=== PATIENT | male | born 1995 | race Caucasian/White ===

== ENCOUNTER 2019-03-11 14:52 | Emergency (ER) | payer BC, OTHER, SELFPAY ==
[2019-03-11 14:54] VITALS: BP 157/91; PULSE 89; RESP 22; TEMP 36.4; O2SAT 100; BMI 24.7
--- NOTE | 2019-03-11 15:15 | CT_ITS ---
STUDY: CT BRAIN WITHOUT CONTRAST REASON FOR EXAM: Male, 23 years old. Headache RADIATION DOSAGE (If Supplied By Facility): CTDIvol = ( 44.99 ) mGy, DLP = ( 779.24 ) mGycm TECHNIQUE: Transaxial CT imaging of the brain was performed without administration of intravenous contrast material. Individualized dose optimization techniques were used for this CT. COMPARISON: May 16, 2014 FINDINGS: Normal soft tissue structures. Normal calvarium. Normal size ventricles and extra-axial spaces for the patient's age. Normal white matter tracts of the cerebral hemispheres. Normal basal ganglia and thalami. Normal brainstem. Normal cerebellum. There is no intracranial hemorrhage. There are no findings of an acute ischemic infarction. Normal visualized paranasal sinuses. CT/Brain/Head without Contrast IMPRESSION: Normal unenhanced CT scan of the brain. Electronically Signed: Mynor Salter MD at 16:46 EST , Service support ,
--- NOTE | 2019-03-11 15:26 | ED.VISSUMM ---
- ER Visit Summary Date of Service: 03/11/19 Chief Complaint: Headache History of Present Illness: The patient is a 23 M with a headache that started suddenly around 1 PM today. He was at work, standing when he had the sudden onset of right temporal pain. The pain was severe. He denies any other associated symptoms with it like vomiting or neurologic symptoms. He said the pain lasted about 10 to 15 minutes and then subsided. He had 2 other similar episodes, 1 of them at 2 PM, and 1 of them at 3 PM. He never had these before. Nothing seemed to bring them on. He denies any trauma. Nothing seemed to make them better. He has a history of migraines, but this pain is different. He uses alcohol occasionally and chewing tobacco occasionally. He denies drug use. Denies any other medical issues or surgeries. Physical Examination: Afebrile and vital signs unremarkable. Patient is alert and oriented. No acute distress. HEENT exam unremarkable. Head and neck atraumatic. Neck is nontender with good range of motion. Heart regular rate. No respiratory distress. Skin appears normal. Alert and oriented. Cranial nerves grossly intact. Normal strength and sensation. Normal affect. Test Results: CT, labs pending. Emergency Department Course and Treatment: Patient was treated with fluids, Benadryl, and Compazine while awaiting imaging and laboratory results. Labs were normal. CT brain was normal. Patient's pain went from 7 to 4 out of 10 after Compazine and Benadryl. I did check CTAs which were unremarkable. Will treat with Toradol. I have low suspicion for aneurysm, bleed. I suspect this is an atypical migraine or other headache variant. Patient will be discharged to follow-up with primary care. Treatment Plan: As above Disposition: Discharge Impression: 1. Headache This note was generated with [employer] dictation software. It may contain incorrect words, spelling, and punctuation that were not noted in review of the chart prior to signing ED Disposition - Plan for ED Patient: Referrals: Figueroa Bryson MD [Primary Care Provider] -
[2019-03-11] MEDS: 0.9% Normal Saline 1,000 ML 999 ML IV (15:28)
[2019-03-11 15:29] LABS: Absolute Lymphocyte Count 1.51 X10^3/uL (0.83-4.51); Absolute Neutrophil Count 5.3 X10^3/uL (2.0-7.7); Basophil# 0.03 X10^3/uL; Basophil% 0.4 % (0-1); Eosinophil# 0.07 X10^3/uL; Eosinophils% 0.9 % (0-5); Hematocrit 46.1 % (40-54); Hemoglobin 16.3 g/dL (13.0-16.5); Lymphocyte # 1.51 X10^3/ul (4.0); Lymphocyte % 19.6 % (19-41); Mean Corp Hgb Conc 35.4 g/dL (32-36); Mean Platelet Vol. 10.2 fl (6.2-12.0); Monocyte# 0.78 X10^3/uL; Monocyte% 10.1 % (0-10); NRBC Flagged by Analyzer 0 % (0-5); Neutrophil # 5.27 X10^3/uL (2.7-7.7); Neutrophil % 68.6 % (47-70); Platelet Count 253 K/mm3 (150-450); RBC Distribution Width CV 11.6 % (11.6-14.6); RBC Distribution Width SD 33.7 fl (35.1-43.9); Red Blood Count 5.62 M/mm3 (4.6-6.2); White Blood Count 7.7 K/mm3 (4.4-11.0)
[2019-03-11] MEDS: DiphenhydrAMINE 50 MG/ML Syringe 25 MG IV (15:30)
[2019-03-11] MEDS: proCHLORPERazine 10 MG/2 ML Vial IV (15:32)
[2019-03-11 15:46] LABS: Prothrombin Time (Protime)PT. 13.2 SECONDS (11.7-14.9)
[2019-03-11 15:47] LABS: Anion Gap 9 (5-15); BUN 12 mg/dL (7-18); BUN/Creat Ratio 11.5 RATIO (10-20); Calcium,Total 9.4 mg/dL (8.5-10.1); Chloride 106 mmol/L (98-107); Creatinine, Serum 1.04 mg/dL (0.70-1.30); EST Glomerular Filtration Rate 95 mL/min (>60); Est Glom Filt Rate - Afr Amer 115 mL/min (>60); Estimated Creatinine Clearance 125.91 ml/min; Glucose 98 mg/dL (74-106); Partial Thromboplast Time 28.9 Seconds (24.1-36.2); Potassium 3.6 mmol/L (3.5-5.1); Sodium Level 141 mmol/L (136-145)
--- NOTE | 2019-03-11 17:08 | CT_ITS ---
STUDY: CTA HEAD AND NECK WITH CONTRAST REASON FOR EXAM: Male, 23 years old. Headache and right-sided pain RADIATION DOSAGE (If Supplied By Facility): CTDIvol = ( 21.48 ) mGy, DLP = ( 803.01 ) mGycm TECHNIQUE: CT angiography was performed with a multi-detector CT scanner. Data acquisition was obtained from the skull base through the vertex following intravenous administration of IV 100mL Isovue-370 100. MIP images were reconstructed from the axial data set. Post-processing of the angiographic images was performed, without multiplanar reformation and 3D reconstruction. Sensitivity therefore limited. Individualized dose optimization techniques were used for this CT. COMPARISON: CT brain from today FINDINGS: Normal bilateral petrous carotid arteries. Normal right cavernous carotid artery with a normal supraclinoid bifurcation. Normal left cavernous carotid artery with a normal supraclinoid bifurcation. Normal right A1 segments of the anterior cerebral artery. Normal left A1 segments of the anterior cerebral artery. Normal intact anterior communicating artery (ACOM). Normal bilateral A2 segments of the anterior cerebral arteries. Normal right M1 and M2 segments of the middle cerebral arteries, with a normal M1 bifurcation. Normal left M1 and M2 segments of the middle cerebral arteries, with a normal M1 bifurcation. Hypoplastic right posterior communicating artery (PCOM). Hypoplastic left posterior communicating artery (PCOM). Normal bilateral vertebral arteries. Normal basilar artery with a normal basilar bifurcation. The visualized bilateral superior cerebellar (SCA) arteries are normal. Normal bilateral P1, P2 and visualized P3 segments of the posterior cerebral arteries. There is no demonstrated aneurysm of the [place]. There is no demonstrated abnormality of the visualized brain. AORTIC ARCH: Normal visualized aortic arch. Normal origins of the brachiocephalic, left common carotid, and left subclavian arteries. RIGHT CAROTID ARTERIES: Normal right common carotid artery (CCA). Normal right common carotid bulb. Normal origin of the right internal carotid (ICA) artery without a hemodynamically significant stenosis. Normal visualized cervical portion of the right internal carotid artery. Normal origin of the right external carotid artery (ECA). LEFT CAROTID ARTERIES: Normal left common carotid artery (CCA). Normal left common carotid bulb. Normal origin of the left internal carotid (ICA) artery without a hemodynamically significant stenosis. Normal visualized cervical portion of the left internal carotid artery. Normal origin of the left external carotid artery (ECA). VERTEBRAL ARTERIES: Normal bilateral vertebral arteries. CT/CTA Head AND Neck W/ Contrast IMPRESSION: Normal CTA Head and neck with contrast. Electronically Signed: Mynor Salter MD at 18:14 EST , Service support ,
--- NOTE | 2019-03-11 18:43 | ED.DEP ---
ED Disposition - Plan for ED Patient: Instructions: HEADACHE, Unspecified Referrals: Figueroa Bryson MD [Primary Care Provider] -
[2019-03-11] MEDS: Ketorolac 30 MG/ML Syringe IV (18:49)
[2019-03-11 18:51] VITALS: RESP 18
== END 2019-03-11 19:07 | disposition home or self-care (01) ==
PROVIDERS: Emergency Provider Emergency Medicine; Family Provider Family Medicine; PCP Family Medicine
DX: R51 Headache (principal); F17.220 Nicotine dependence, chewing tobacco, uncomplicated
CPT/HCPCS: 70450; 70496; 70498; 80048; 85025; 85610; 85730; 96361; 96374; 96375; 99283; J7030; Q9967; A4216

== ENCOUNTER 2020-02-07 20:51 | Emergency (ER) | payer BC, SELFPAY ==
[2020-02-07 20:53] VITALS: BP 152/93; PULSE 79; RESP 15; TEMP 37.8; O2SAT 98; BMI 27.6
--- NOTE | 2020-02-07 22:51 | CT_ITS ---
STUDY: CT ABDOMEN AND PELVIS WITHOUT CONTRAST REASON FOR EXAM: Male, 24 years old. Rectal bleeding for 2 days. Bleeding increased today. Mid left abdominal pain. RADIATION DOSAGE (If Supplied By Facility): CTDIvol = ( 7.18 ) mGy, DLP = ( 391.11 ) mGycm TECHNIQUE: Transaxial images were obtained from the dome of the diaphragm to the symphysis pubis without oral contrast, and without intravenous contrast. Sagittal and coronal images were reconstructed. Individualized dose optimization techniques were used for this CT. COMPARISON: None. FINDINGS: The visualized lung bases are unremarkable. The visualized portions of the heart are within normal limits. Normal liver. Normal gallbladder and extrahepatic biliary system. Borderline splenomegaly. Normal pancreas. Normal bilateral adrenal glands. Normal right kidney. Normal left kidney. Normal bilateral ureters. Normal visualized stomach. Normal small intestine. Normal colon. The appendix is visualized and appears normal. Normal abdominal aorta. Normal inferior vena cava. Normal retroperitoneum. Normal urinary bladder. Normal size prostate. There are phleboliths in the pelvis without lymphadenopathy. No free air or free fluid is seen within the peritoneal cavity. Small umbilical hernia of omental fat. The abdominal wall is otherwise unremarkable. Normal osseous structures. CT/Abdomen/Pelvis without Cont IMPRESSION: 1. No acute intra-abdominal or pelvic process. 2. Borderline splenomegaly. Electronically Signed: Bert Dumont DO at 23:50 EDT Tel [phone], Service support ,
--- NOTE | 2020-02-07 22:52 | ED.DCSUM_ITS ---
History of Present Illness Chief Complaint: GI Bleed Narrative: Patient presents with abdominal pain that has been ongoing for the past 2 to 3 months he is also having intermittent rectal bleeding. He saw his PCP brooks and was referred to the emergency department. Denies any fever or chills he does not feel lightheaded when he stands up he has no urinary symptoms he has no testicular pain. He denies any chest pain or shortness of breath. The pain is aching and sharp and intermittent. Past Medical History - Allergies and Home Meds Allergies/Adverse Reactions: Allergies fluoxetine HCl [From Prozac] Allergy (Verified 02/07/20 20:52) Hives lisdexamfetamine dimesylate [From Vyvanse] Allergy (Verified 02/07/20 20:52) Other sertraline HCl [From Zoloft] Allergy (Verified 02/07/20 20:52) Hives Sulfa (Sulfonamide Antibiotics) Allergy (Verified 02/07/20 20:52) Rash Primary Care Physician: Figueroa Bryson MD [Primary Care Provider] - Past Medical History: None Smoking Status: Former smoker Review of Systems General: Denies: Chills Eyes: Denies: Visual changes - bilaterally Cardiovascular: Denies: Chest pain Respiratory: Denies: Dyspnea, Cough Gastrointestinal: Reports: Abdominal pain. Denies: Nausea, Vomiting Musculoskeletal: Denies: Back pain Skin: Denies: Abscess, Wounds Neurological: Denies: Headache, Weakness Endocrine: Denies: Polyuria, Polydipsia Hematologic: Denies: Easy bruising, Easy bleeding Physical Exam Vital Signs/Narrative: Vital Signs Temp Pulse Resp BP Pulse Ox 02/07/20 20:53 100.0 F H 79 15 152/93 H 98 General: Well nourished, Well developed Cardiovascular: Regular rate, Regular rhythm Respiratory: No distress, CTA bilaterally Abdomen: Soft, - - There is some mild diffuse abdominal pain without any guarding or rebound. Pain is throughout. Back: Nontender, Normal Inspection Extremities: Nontender Skin: Normal color, No rash Neurological: Normal Strength Diagnostic/Tx/Re-eval - Medical Decision Making Patient has a normal emergency department work-up, however I do believe he likely has inflammatory bowel disease he will need a colonoscopy. I will refer to GI. I will give him analgesia for home. If anything changes he is to return he understands this. ED Disposition - Plan for ED Patient: Disposition: Home or Assisted Living Diagnosis: Abdominal pain Prescriptions: Dicyclomine HCl [Bentyl] 20 mg PO TIDAC #20 cap Transmission Status: Pending to [facility] Hydrocodone Bitart/Apap 5-325 [[place] 5MG-325MG] 1 tab PO Q4H PRN PRN 2 Days #10 tab PRN Reason: Pain Transmission Status: Received by [facility]ARRETT [facility] Referrals: Sumeet Nolasco MD [NON-STAFF] - 3-5 Days
[2020-02-07] MEDS: Morphine 2 MG/ML Syringe IV (23:07)
[2020-02-07] MEDS: Ondansetron 4 MG/2 ML Vial IV (23:07)
[2020-02-07] MEDS: 0.9% Normal Saline 1,000 ML 1000 ML IV (23:07)
[2020-02-07 23:17] LABS: Absolute Lymphocyte Count 1.99 X10^3/uL (0.83-4.51); Absolute Neutrophil Count 3.6 X10^3/uL (2.0-7.7); Basophil# 0.04 X10^3/uL; Basophil% 0.6 % (0-1); Eosinophil# 0.09 X10^3/uL; Eosinophils% 1.4 % (0-5); Hematocrit 45.1 % (40-54); Hemoglobin 15.6 g/dL (13.0-16.5); Lymphocyte # 1.99 X10^3/ul (4.0); Lymphocyte % 31.1 % (19-41); Mean Corp Hgb Conc 34.6 g/dL (32-36); Mean Corpuscular Hgb 28.6 pg (27.0-32.0); Mean Corpuscular Volume 82.6 fL (80-94); Mean Platelet Vol. 10.4 fl (6.2-12.0); Monocyte# 0.63 X10^3/uL; Monocyte% 9.9 % (0-10); NRBC Flagged by Analyzer 0 % (0-5); Neutrophil % 56.4 % (47-70); Platelet Count 254 K/mm3 (150-450); RBC Distribution Width CV 11.9 % (11.6-14.6); RBC Distribution Width SD 35.6 fl (35.1-43.9); Red Blood Count 5.46 M/mm3 (4.6-6.2); White Blood Count 6.4 K/mm3 (4.4-11.0)
[2020-02-07 23:33] LABS: ALB/GLOB Ratio 1.5 RATIO (0.9-2.4); AST(SGOT) 14 U/L (15-37); Alanine Aminotransfer ALT/SGPT 32 U/L (16-61); Albumin, Serum 4.4 g/dL (3.2-5.0); Alkaline Phosphatase 76 U/L (45-117); Anion Gap 6 (5-15); BUN 11 mg/dL (7-18); BUN/Creat Ratio 10.2 RATIO (10-20); Chloride 104 mmol/L (98-107); Creatinine, Serum 1.08 mg/dL (0.70-1.30); EST Glomerular Filtration Rate 90 mL/min (>60); Est Glom Filt Rate - Afr Amer 109 mL/min (>60); Estimated Creatinine Clearance 116.76 ml/min; Glucose 86 mg/dL (74-106); Potassium 3.7 mmol/L (3.5-5.1); Protein, Total 7.4 g/dL (6.4-8.2); Sodium Level 141 mmol/L (136-145)
[2020-02-08 00:34] VITALS: TEMP 36.7
== END 2020-02-08 00:35 | disposition home or self-care (01) ==
PROVIDERS: Emergency Provider Emergency Medicine; PCP Family Medicine
DX: R10.84 Generalized abdominal pain (principal); K62.5 Hemorrhage of anus and rectum; Z79.899 Other long term (current) drug therapy; Z88.2 Allergy status to sulfonamides; Z87.891 Personal history of nicotine dependence
CPT/HCPCS: 74176; 80053; 85025; 96361; 96374; 96375; 99282; J7030; A4216; J2405

== ENCOUNTER 2020-02-10 09:18 | Emergency (ER) | payer BC, SELFPAY ==
[2020-02-10 09:18] VITALS: BP 142/74; PULSE 74; RESP 16; TEMP 36.6; O2SAT 100; BMI 26.4
[2020-02-10 09:51] VITALS: BP 141/73; PULSE 70; RESP 22; O2SAT 97
--- NOTE | 2020-02-10 10:03 | CT_ITS ---
STUDY: CT ABDOMEN AND PELVIS WITH CONTRAST REASON FOR EXAM: Male, 24 years old. ABD PAIN, BLOOD IN STOOL RADIATION DOSAGE (If Supplied By Facility): CTDIvol = ( 10.82 ) mGy, DLP = ( 676.83 ) mGycm TECHNIQUE: Transaxial images were obtained from the dome of the diaphragm to the symphysis pubis without oral contrast. Oral and amp; IV Gastrografin and amp; 100mL Isovue-300 was administered. Sagittal and coronal images were reconstructed. Individualized dose optimization techniques were used for this CT. COMPARISON: None. FINDINGS: The visualized lung bases are unremarkable. The visualized portions of the heart are within normal limits. Normal liver. Normal gallbladder and extrahepatic biliary system. Normal spleen. Normal pancreas. Normal bilateral adrenal glands. Normal right kidney. Normal left kidney. Normal visualized stomach. Normal small intestine. Normal colon. The appendix is visualized and appears normal. Normal abdominal aorta. Normal inferior vena cava. Normal retroperitoneum. Normal urinary bladder. Normal visualized prostate gland. There is a small umbilical hernia containing fat. Normal osseous structures. CT/Abdomen/Pelvis WITH Contrast IMPRESSION: No acute process identified on this CT of the abdomen and pelvis.. Electronically Signed: Eric Torres, at 12:45 EDT Tel , Service support ,
--- NOTE | 2020-02-10 10:04 | ED.VIS.GI ---
History of Present Illness Chief Complaint: Abd Pain Informant: Patient - Abdominal Pain/Flank Pain Onset: Days Context: Gradual Onset Timing: Intermittent Quality: Cramping, Sharp - Nausea/Vomiting/Emesis GI Symptom: Negative for: Nausea, Vomiting - Diarrhea/Melena/Hematochezia GI Symptom: Diarrhea, - - BRBPR. Negative for: Melena Onset: Month(s) Narrative: 24-year-old male resenting with worsening abdominal pain. Patient started having abdominal pain that he describes as poop cramps 6 days ago but were mild. 4 days ago the pain became more severe in his lower abdomen and started radiating to his left lower quadrant and mid abdomen so he came to the emergency room to be evaluated. At that time he also had an increase in the blood he was seen in the stool. He states it is bright red blood. Is not sure there is any clots. He denies any melena. He notes most the time he stools in a leela potty so it is hard for him to watch his stools completely. 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 Patient denies associated nausea or vomiting. He denies any fever or chills. At that time patient had a CT of his abdomen and blood work which is all grossly normal and he is referred to GI. He has an appointment to see Dr. Nolasco on February 17. He was discharged home with Vicodin, Bentyl and Zofran. States the Vicodin helped slightly of the other 2 medicines he has noticed a difference. Since then the pain has worsened in intensity. Is not change in his characteristics. He continues to have blood in his stool. The blood in his stools actually been going on for 3 to 6 months patient just thought it would go away. He notes maternal grandmother has history of colon cancer but no family history of inflammatory bowel disease. No other complaints at this time. Past Medical History - Allergies and Home Meds Allergies/Adverse Reactions: Allergies fluoxetine HCl [From Prozac] Allergy (Verified 02/10/20 09:20) Hives lisdexamfetamine dimesylate [From Vyvanse] Allergy (Verified 02/10/20 09:20) Other sertraline HCl [From Zoloft] Allergy (Verified 02/10/20 09:20) Hives Sulfa (Sulfonamide Antibiotics) Allergy (Verified 02/10/20 09:20) Rash Primary Care Physician: Figueroa Bryson MD [Primary Care Provider] - Past Medical History: None Surgical History: no surgical history Smoking Status: Never smoker Review of Systems General: Denies: Chills, Fever, Sweats Eyes: Denies: Visual changes - bilaterally, Diplopia ENT: Denies: Rhinorrhea, Sore throat Cardiovascular: Denies: Chest pain, Palpitations Respiratory: Denies: Dyspnea, Cough, Dyspnea on exertion Gastrointestinal: Reports: Abdominal pain, - - Bright Red blood per rectum. Denies: Nausea, Vomiting, Diarrhea, Melena, Hematochezia Genitourinary: Denies: Dysuria, Hematuria, Frequency Musculoskeletal: Denies: Back pain, Extremity Pain Skin: Denies: Rash, Wounds Neurological: Denies: Headache, Weakness, Numbness Physical Exam Vital Signs/Narrative: Vital Signs Temp Pulse Resp BP Pulse Ox 02/10/20 09:51 70 22 H 141/73 H 97 02/10/20 09:18 97.9 F 74 16 142/74 H 100 Inital Vital Signs reviewed: Yes General: Well nourished, Well developed, No Acute Distress Head: Normocephalic, Atraumatic Eyes: Perrl, EOMI ENT: Moist mucous membranes, No rhinorrhea Neck: Supple, Nontender Cardiovascular: Regular rate, Regular rhythm, No murmurs Respiratory: No distress, CTA bilaterally, Chest nontender, - - Slightly tachypneic but states is from pain Abdomen: Soft, Nontender, Nondistended, Normal bowel sounds. Negative for: Guarding, Rebound tenderness Rectal: Deferred - Patient declined rectal exam stating he had one on Friday and was uncomfortable and would not like another one. Back: Nontender, Normal Inspection. Negative for: CVA tenderness Extremities: Nontender, No edema Skin: Normal color, No rash Neurological: Alert, Oriented x3, Cranial nerves II-XII grossly intact, Normal Strength, Normal Sensation Psychological: Normal affect, Normal Mood Diagnostic/Tx/Re-eval Clinical Impression(s) from Imaging Studies Abdomen/Pelvis CT 02/10/20 10:03 IMPRESSION: No acute process identified on this CT of the abdomen and pelvis.. Electronically Signed: Eric Torres, at 12:45 EDT Tel , Service support , Laboratory Data 02/10/20 02/10/20 02/10/20 10:13 10:13 10:13 WBC 5.0 RBC 5.60 Hgb 15.8 Hct 45.6 MCV 81.4 MCH 28.2 MCHC 34.6 RDW Std Deviation 34.5 L RDW Coeff of Av 11.8 Plt Count 235 MPV 10.0 Immature Gran % (Auto) 0.600 Neut % (Auto) 57.9 Lymph % (Auto) 30.3 [place] % (Auto) 9.2 Eos % (Auto) 1.4 Baso % (Auto) 0.6 Absolute Neuts (auto) 2.9 Absolute Lymphs (auto) 1.51 Nucleated RBC % 0 Sodium 139 Potassium 3.6 Chloride 105 Carbon Dioxide 29.0 Anion Gap 5 BUN 13 Creatinine 1.09 Estim Creat Clear Calc 119.12 Est GFR (MDRD) Af Amer 108 Est GFR (MDRD) Non-Af 89 BUN/Creatinine Ratio 11.9 Glucose 93 Lactic Acid 1.2 Calcium 9.6 Total Bilirubin 0.70 AST 18 ALT 29 Alkaline Phosphatase 68 Total Protein 7.3 Albumin 4.2 Globulin 3.1 Albumin/Globulin Ratio 1.4 Lipase 87 Urine Color Urine Clarity Urine pH Ur Specific [place] Urine Protein Urine Glucose (UA) Urine Ketones Urine Occult Blood Urine Nitrite Urine Bilirubin Urine Urobilinogen Ur Leukocyte Esterase Urine RBC Urine WBC Ur Squamous Epith Cells Urine Bacteria Urine Mucus 02/10/20 12:40 WBC RBC Hgb Hct MCV MCH MCHC RDW Std Deviation RDW Coeff of Av Plt Count MPV Immature Gran % (Auto) Neut % (Auto) Lymph % (Auto) [place] % (Auto) Eos % (Auto) Baso % (Auto) Absolute Neuts (auto) Absolute Lymphs (auto) Nucleated RBC % Sodium Potassium Chloride Carbon Dioxide Anion Gap BUN Creatinine Estim Creat Clear Calc Est GFR (MDRD) Af Amer Est GFR (MDRD) Non-Af BUN/Creatinine Ratio Glucose Lactic Acid Calcium Total Bilirubin AST ALT Alkaline Phosphatase Total Protein Albumin Globulin Albumin/Globulin Ratio Lipase Urine Color Yellow Urine Clarity Clear Urine pH 7.0 Ur Specific [place] 1.010 Urine Protein Negative Urine Glucose (UA) Normal Urine Ketones Negative Urine Occult Blood Negative Urine Nitrite Negative Urine Bilirubin Negative Urine Urobilinogen Normal Ur Leukocyte Esterase Negative Urine RBC 0 SEEN Urine WBC 0 SEEN Ur Squamous Epith Cells 0 SEEN Urine Bacteria 0 SEEN Urine Mucus 0 SEEN - Medical Decision Making Evaluated for worsening abdominal pain. He appears uncomfortable but no acute distress. His abdominal exam is benign. I do not think he is pain out of proportion. His vital signs are really largely normal. Patient declines rectal exam stating he had one on Friday and does not want another one as it was uncomfortable. Patient has a stable H&H so I presume he cannot be losing too much blood in his stool in addition he has been having bright red blood per rectum for months. I did repeat a CT given his worsening pain with p.o. and IV contrast this time. It does not show any acute process. Again patient does not have any acute laboratory abnormalities. He is initially given morphine and Zofran as well as fluids. On reevaluation he has minor improvement. Given that he does not have any acute abnormalities on his lab work or CT I do not feel comfortable prescribing him more [place] for his pain. He is instructed to alternate Tylenol and ibuprofen for his pain. He states he only been taking ibuprofen in the morning. He will continue Zofran as needed. He has a follow-up appointment with GI in 8 days and is encouraged to keep it. At this time I do not think he requires admission or emergent evaluation by GI/surgery for his abdominal pain. ED Disposition - Plan for ED Patient: Disposition: Home or Assisted Living Diagnosis: Lower abdominal pain of unknown etiology, BRBPR (bright red blood per rectum) Instructions: ED Unknown Causes of Abdominal Pain Male Referrals: Figueroa Bryson MD [Primary Care Provider] - Additional Instructions: Take ibuprofen 600 mg up to 4 times a day for your pain. Continue take the medications prescribed you and your last ER visit. Make sure you follow-up with GI but at this time I cannot find a cause of your abdominal pain. At this time we do not require an emergent scope.
[2020-02-10 10:24] LABS: Absolute Lymphocyte Count 1.51 X10^3/uL (0.83-4.51); Absolute Neutrophil Count 2.9 X10^3/uL (2.0-7.7); Basophil# 0.03 X10^3/uL; Basophil% 0.6 % (0-1); Eosinophil# 0.07 X10^3/uL; Eosinophils% 1.4 % (0-5); Hematocrit 45.6 % (40-54); Hemoglobin 15.8 g/dL (13.0-16.5); Lymphocyte # 1.51 X10^3/ul (4.0); Lymphocyte % 30.3 % (19-41); Mean Corp Hgb Conc 34.6 g/dL (32-36); Mean Corpuscular Hgb 28.2 pg (27.0-32.0); Mean Corpuscular Volume 81.4 fL (80-94); Monocyte# 0.46 X10^3/uL; Monocyte% 9.2 % (0-10); NRBC Flagged by Analyzer 0 % (0-5); Neutrophil # 2.89 X10^3/uL (2.7-7.7); Neutrophil % 57.9 % (47-70); Platelet Count 235 K/mm3 (150-450); RBC Distribution Width CV 11.8 % (11.6-14.6); RBC Distribution Width SD 34.5 fl (35.1-43.9)
[2020-02-10 10:40] LABS: ALB/GLOB Ratio 1.4 RATIO (0.9-2.4); AST(SGOT) 18 U/L (15-37); Alanine Aminotransfer ALT/SGPT 29 U/L (16-61); Albumin, Serum 4.2 g/dL (3.2-5.0); Alkaline Phosphatase 68 U/L (45-117); Anion Gap 5 (5-15); BUN 13 mg/dL (7-18); BUN/Creat Ratio 11.9 RATIO (10-20); Calcium,Total 9.6 mg/dL (8.5-10.1); Chloride 105 mmol/L (98-107); Creatinine, Serum 1.09 mg/dL (0.70-1.30); EST Glomerular Filtration Rate 89 mL/min (>60); Est Glom Filt Rate - Afr Amer 108 mL/min (>60); Estimated Creatinine Clearance 119.12 ml/min; Globulin 3.1 g/dL (2.2-4.2); Glucose 93 mg/dL (74-106); Lipase 87 U/L (73-393); Potassium 3.6 mmol/L (3.5-5.1); Protein, Total 7.3 g/dL (6.4-8.2); Sodium Level 139 mmol/L (136-145)
[2020-02-10 10:51] LABS: Lactic Acid 1.2 mmol/L (0.4-1.9)
[2020-02-10] MEDS: 0.9% Normal Saline 1,000 ML 1000 ML IV (11:11)
[2020-02-10] MEDS: Morphine 4 MG/ML Syringe IV (11:12)
[2020-02-10] MEDS: Ondansetron 4 MG/2 ML Vial IV (11:12)
[2020-02-10 12:48] LABS: Bacteria 0 SEEN /hpf (None Seen); Mucous, Urine 0 SEEN /hpf (<or=2+); Red Blood Cells-Urine 0 SEEN /hpf (0-5); Squamous Epithelial Cells - UA 0 SEEN /hpf (0-5); White Blood Cells 0 SEEN /hpf (0-5)
[2020-02-10 12:52] LABS: Color, Urine Yellow (Yellow); Glucose, Dipstick Normal (Normal); Ketone-Dipstick Negative (Negative); Leukocyte Esterase-Dipstick Negative /ul (Negative); Nitrite-Dipstick Negative (Negative); Occult Blood-Urine Negative /ul (Negative); Protein-Dipstick Negative (Negative); Urine Bilirubin Dipstick Negative (Negative); Urine Clarity Clear (Clear); Urine Urobilinogen Normal (Normal)
[2020-02-10 14:34] VITALS: RESP 18
== END 2020-02-10 14:35 | disposition home or self-care (01) ==
PROVIDERS: Emergency Provider Emergency Medicine; PCP Family Medicine
DX: R10.30 Lower abdominal pain, unspecified (principal); K92.1 Melena
CPT/HCPCS: 74177; 80053; 81001; 83605; 83690; 85025; 96361; 96374; 96375; 99282; J7030; Q9967; J2405

== ENCOUNTER 2020-03-02 16:07 | Emergency (ER) | payer BC, SELFPAY ==
[2020-03-02 16:09] VITALS: BP 153/100; PULSE 88; RESP 18; TEMP 36.4; O2SAT 100; BMI 25.7
--- NOTE | 2020-03-02 16:19 | CT_ITS ---
STUDY: CT ABDOMEN AND PELVIS WITH CONTRAST REASON FOR EXAM: Male, 24 years old. LLQ PAIN S/P COLONOSCOPY, BLOOD IN STOOL RADIATION DOSAGE (If Supplied By Facility): CTDIvol = ( 10.18 ) mGy, DLP = ( 556.73 ) mGycm TECHNIQUE: Transaxial images were obtained from the dome of the diaphragm to the symphysis pubis without oral contrast. IV 100mL Isovue-300 was administered. Sagittal and coronal images were reconstructed. Individualized dose optimization techniques were used for this CT. COMPARISON: 02/10/2020. FINDINGS: The visualized lung bases are unremarkable. The visualized portions of the heart are within normal limits. Normal liver. Normal gallbladder and extrahepatic biliary system. Normal spleen. Normal pancreas. Normal bilateral adrenal glands. Normal right kidney. Normal left kidney. Normal visualized stomach. Normal small intestine. Normal colon. The appendix is visualized and appears normal. Normal abdominal aorta. Normal inferior vena cava. Normal retroperitoneum. Normal urinary bladder. Normal abdominal wall. Normal osseous structures. CT/Abdomen/Pelvis W IV Cont ONLY IMPRESSION: Normal enhanced CT of the abdomen and pelvis. Electronically Signed: Chilango Perdue MD at 17:38 EST , Service support ,
[2020-03-02] MEDS: 0.9% Normal Saline 1,000 ML 1000 ML IV (16:33)
[2020-03-02] MEDS: Morphine 4 MG/ML Syringe IV (16:33)
[2020-03-02] MEDS: Ondansetron 4 MG/2 ML Vial IV (16:33)
[2020-03-02 16:49] LABS: Absolute Neutrophil Count 3.6 X10^3/uL (2.0-7.7); Basophil# 0.03 X10^3/uL; Basophil% 0.5 % (0-1); Eosinophil# 0.04 X10^3/uL; Eosinophils% 0.7 % (0-5); Hematocrit 44.4 % (40-54); Hemoglobin 15.4 g/dL (13.0-16.5); Lymphocyte % 28.7 % (19-41); Mean Corp Hgb Conc 34.7 g/dL (32-36); Mean Corpuscular Hgb 27.7 pg (27.0-32.0); Monocyte# 0.58 X10^3/uL; Monocyte% 9.8 % (0-10); NRBC Flagged by Analyzer 0 % (0-5); Neutrophil # 3.55 X10^3/uL (2.7-7.7); Platelet Count 280 K/mm3 (150-450); RBC Distribution Width CV 11.5 % (11.6-14.6); RBC Distribution Width SD 33.3 fl (35.1-43.9); Red Blood Count 5.55 M/mm3 (4.6-6.2); White Blood Count 5.9 K/mm3 (4.4-11.0)
--- NOTE | 2020-03-02 16:59 | ED.VIS.GEN ---
History of Present Illness Chief Complaint: Shortness of Breath Informant: Patient Onset: Yesterday Context: Gradual Onset Timing: Continuous Current Severity: Moderate Maximum Severity: Moderate Narrative: The patient presents to the emergency department with multiple complaints. He has been having intermittent abdominal cramping and rectal bleeding for over a month. He had outpatient colonoscopy done yesterday. He states since that time, his pain has returned. He has been nauseated and vomiting. He also denies some shortness of breath with vomiting. He is unsure if he had a fever. He denies chills or sweats. He has no known Covid exposure. He states he is otherwise been in his normal state of health. Prior similar symptoms: Yes Recent Illness/Hospitalization: Yes Past Medical History - Allergies and Home Meds Allergies/Adverse Reactions: Allergies fluoxetine HCl [From Prozac] Allergy (Verified 03/02/20 16:13) Hives lisdexamfetamine dimesylate [From Vyvanse] Allergy (Verified 03/02/20 16:13) Other sertraline HCl [From Zoloft] Allergy (Verified 03/02/20 16:13) Hives Sulfa (Sulfonamide Antibiotics) Allergy (Verified 03/02/20 16:13) Rash Primary Care Physician: Figueroa Bryson MD [Primary Care Provider] - Prior records reviewed: Yes Past Medical History: - - Abdominal pain history Surgical History: no surgical history Smoking Status: Never smoker Review of Systems General: Denies: Chills, Fever, Sweats Eyes: Denies: Visual changes - bilaterally, Diplopia ENT: Denies: Rhinorrhea, Sore throat Cardiovascular: Denies: Chest pain, Palpitations Respiratory: Reports: Cough. Denies: Dyspnea, Dyspnea on exertion Gastrointestinal: Reports: Nausea, Vomiting. Denies: Abdominal pain, Diarrhea, Melena, Hematochezia Genitourinary: Denies: Dysuria, Hematuria, Frequency Musculoskeletal: Denies: Back pain, Extremity Pain Skin: Denies: Rash, Wounds Neurological: Denies: Headache, Weakness, Numbness Physical Exam Vital Signs/Narrative: Vital Signs Temp Pulse Resp BP Pulse Ox 03/02/20 16:09 97.6 F L 88 18 153/100 H 100 Inital Vital Signs reviewed: Yes General: Well nourished, Well developed, No Acute Distress Head: Normocephalic, Atraumatic Eyes: Perrl, EOMI ENT: Moist mucous membranes, No rhinorrhea Neck: Supple, Nontender Cardiovascular: Regular rate, Regular rhythm, No murmurs Respiratory: No distress, CTA bilaterally, Chest nontender Abdomen: Soft, Nontender, Nondistended, Normal bowel sounds Back: Nontender, Normal Inspection Extremities: Nontender, No edema Skin: Normal color, No rash Neurological: Alert, Oriented x3, Cranial nerves II-XII grossly intact, Normal Strength, Normal Sensation Psychological: Normal affect, Normal Mood Diagnostic/Tx/Re-eval Clinical Impression(s) from Imaging Studies Abdomen/Pelvis CT 03/02/20 16:19 IMPRESSION: Normal enhanced CT of the abdomen and pelvis. Electronically Signed: Chilango Perdue MD at 17:38 EST , Service support , Abnormal Lab Results 03/02/20 03/02/20 16:36 16:36 WBC 5.9 RBC 5.55 Hgb 15.4 Hct 44.4 MCV 80.0 MCH 27.7 MCHC 34.7 RDW Std Deviation 33.3 L RDW Coeff of Av 11.5 L Plt Count 280 MPV 10.0 Immature Gran % (Auto) 0.300 Neut % (Auto) 60.0 Lymph % (Auto) 28.7 [place] % (Auto) 9.8 Eos % (Auto) 0.7 Baso % (Auto) 0.5 Absolute Neuts (auto) 3.6 Absolute Lymphs (auto) 1.70 Nucleated RBC % 0 Sodium 140 Potassium 3.4 L Chloride 106 Carbon Dioxide 23.0 Anion Gap 11 BUN 13 Creatinine 1.22 Estim Creat Clear Calc 106.42 Est GFR (MDRD) Af Amer 94 Est GFR (MDRD) Non-Af 78 BUN/Creatinine Ratio 10.7 Glucose 103 Calcium 9.3 Total Bilirubin 0.70 AST 19 ALT 35 Alkaline Phosphatase 77 Total Protein 7.8 Albumin 4.6 Globulin 3.2 Albumin/Globulin Ratio 1.4 - Medical Decision Making Patient presents with abdominal cramping, nausea, and vomiting after colonoscopy. His abdomen is mildly tender in the left lower quadrant without rebound or guarding. IV was established. Patient was given fluids and antiemetics with some improvement. Noncontrast CT shows no evidence of perforation or other dangerous process. Labs are unremarkable. I do feel that this is likely just reactive pain from recent colonoscopy. I do not suspect a dangerous process. He is currently being evaluated by GI for his pain. I do feel that he is safe for outpatient therapy. 1. Abdominal pain status post colonoscopy ED Disposition - Plan for ED Patient: Instructions: ED Unknown Causes of Abdominal Pain Male Prescriptions: Dicyclomine HCl [Bentyl] 20 mg PO TIDAC #20 cap Prescription Printed Ondansetron [Zofran Odt] 4 mg PO Q8H PRN PRN #10 tab PRN Reason: Nausea Prescription Printed Referrals: Figueroa Bryson MD [Primary Care Provider] -
[2020-03-02 17:14] LABS: ALB/GLOB Ratio 1.4 RATIO (0.9-2.4); AST(SGOT) 19 U/L (15-37); Alanine Aminotransfer ALT/SGPT 35 U/L (16-61); Albumin, Serum 4.6 g/dL (3.2-5.0); Alkaline Phosphatase 77 U/L (45-117); Anion Gap 11 (5-15); BUN 13 mg/dL (7-18); BUN/Creat Ratio 10.7 RATIO (10-20); Calcium,Total 9.3 mg/dL (8.5-10.1); Chloride 106 mmol/L (98-107); Creatinine, Serum 1.22 mg/dL (0.70-1.30); EST Glomerular Filtration Rate 78 mL/min (>60); Est Glom Filt Rate - Afr Amer 94 mL/min (>60); Estimated Creatinine Clearance 106.42 ml/min; Globulin 3.2 g/dL (2.2-4.2); Glucose 103 mg/dL (74-106); Potassium 3.4 mmol/L (3.5-5.1); Protein, Total 7.8 g/dL (6.4-8.2); Sodium Level 140 mmol/L (136-145)
[2020-03-02 18:26] VITALS: BP 128/85; PULSE 71; RESP 18; O2SAT 98
== END 2020-03-02 18:27 | disposition home or self-care (01) ==
LOC: ED 16:29
PROVIDERS: Emergency Provider Emergency Medicine; PCP Family Medicine
DX: R10.32 Left lower quadrant pain (principal); Z98.890 Other specified postprocedural states; K62.5 Hemorrhage of anus and rectum; R11.2 Nausea with vomiting, unspecified; Z79.899 Other long term (current) drug therapy
CPT/HCPCS: 74177; 80053; 85025; 96361; 96374; 96375; 99282; J7030; Q9967; A4216; J2405

== ENCOUNTER 2021-12-26 11:34 | Emergency (ER) | payer BC, SELFPAY ==
[2021-12-26 11:35] VITALS: BP 164/93; PULSE 85; RESP 18; TEMP 37.1; O2SAT 100; BMI 28.5
--- NOTE | 2021-12-26 11:57 | EKG12_ITS ---
Test Reason : CHEST PAIN Blood Pressure : / mmHG Vent. Rate : 082 BPM Atrial Rate : 082 BPM P-R Int : 206 ms QRS Dur : 106 ms QT Int : 384 ms P-R-T Axes : 028 027 027 degrees QTc Int : 448 ms Normal sinus rhythm Incomplete right bundle branch block Borderline ECG Confirmed by REGGIE JOE, REN ([id number]), editor producer ALEXANDRIA SABA ([id number]) on 12/28/2021 2:23:30 PM Referred By: SYDNI Confirmed By:NERI PAREDES MD
--- NOTE | 2021-12-26 12:05 | RAD_ITS ---
STUDY: X-RAY CHEST REASON FOR EXAM: Male, 26 years old. Chest pain TECHNIQUE: PA and lateral views of the chest. COMPARISON: Comparison is made with prior study of 09/01/2014. FINDINGS: EKG electrodes are seen. The lungs are clear. The lungs are clear and expanded. There is no demonstrated pleural abnormality. Normal size heart. Normal mediastinum and katiana. Normal visualized pulmonary arteries. Normal visualized aortic arch and descending thoracic aorta. Normal visualized thoracic spine. Normal visualized ribs, clavicles, and shoulders. There is no demonstrated abnormality of the visualized soft tissue structures of the upper abdomen. RAD/Chest PA and Lateral IMPRESSION: Normal x-ray examination of the chest. Electronically Signed: Wes Flores MD at 12:28 EDT ,
--- NOTE | 2021-12-26 12:30 | EDS_ITS ---
HPI History of Present Illness Chief Complaint: Chest Pain Informant: patient Narrative Narrative: Patient is a 26-year-old male with history of asthma presenting with chest pain. Patient states is in the center of his chest. Started last night while seated on the couch. Denies any difficulty breathing. Denies any history of DVT or PE. States the pain is worse when he takes a deep breath. Does have a history of asthma but states it feels different than this. Initially thought he was may be just getting sick last night but when the pain persisted he did not have any other symptoms today he came in. No associated nausea or vomiting. No other complaints at this time. States his mother has a history of a pacemaker and heart problems but does not know further details. Denies any tobacco use or smoking. PFSH PFSH Home Medications omeprazole 20 mg capsule,delayed release 20 mg PO DAILY 02/07/20 [History Last Taken Unknown] Allergy/AdvReac Type Severity Reaction Status Date / Time fluoxetine HCl [From Prozac] Allergy Hives Verified 03/02/20 16:13 lisdexamfetamine dimesylate Allergy Other Verified 03/02/20 16:13 [From Vyvanse] sertraline HCl [From Zoloft] Allergy Hives Verified 03/02/20 16:13 Sulfa (Sulfonamide Allergy Rash Verified 03/02/20 16:13 Antibiotics) Social History Smoking Status: Never smoker [facility] ED Constitutional Constitutional ED: Denies chills or fever(s) Eyes Eyes: Denies change in vision ENT ENT ED: Denies rhinorrhea or sore throat Cardiovascular Cardiovascular: Reports as per HPI and chest pain; Denies palpitations Respiratory/Chest Respiratory/Chest: Denies cough, dyspnea or dyspnea on exertion Gastrointestinal Gastrointestinal: Denies abdominal pain, nausea or vomiting Musculoskeletal Musculoskeletal: Denies arthralgias or myalgias Integumentary Denies rash Neurologic Neurologic: Denies headache(s) or weakness Psychiatric Psychiatric: Denies anxiety Hematologic/Lymphatic Hematologic/Lymphatic: Denies easy bleeding or easy bruising EXAM Physical Exam Const Vital Signs: 12/26/21 11:35 12/26/21 12:40 Temperature 98.7 F Temperature Source Temporal Pulse Rate 85 87 Respiratory Rate 18 18 Blood Pressure 164/93 H 158/75 H Blood Pressure Mean 116 102 Pulse Ox 100 Oxygen Delivery Method Room Air Positive well nourished and well developed General Appearance ED: well developed and NAD HEENT Reports moist mucous membranes normocephalic and atraumatic Eyes PERRL and EOMs intact bilaterally Neck supple and no JVD Chest Wall inspection of chest normal Chest Narrative: Tenderness palpation over the xiphoid process/lower sternal-this reproduces some of his pain Resp normal respiratory effort and clear to auscultation bilaterally Auscultation: Negative for wheezes Cardio regular rate, regular rhythm and no murmurs GI normal to inspection, nondistended, normoactive bowel sounds and soft to palpation Extremity normal to inspection General Extremety ED: Negative for edema or pulses abnormal General Extremity: Negative for edema or pulses abnormal Neuro oriented x3 Neuro Narrative: No focal deficits appreciated, normal tone throughout Sensorium / Orientation: awake and alert Psych mental status grossly normal Skin no rashes or lesions noted Heart Score History: Slightly/Non-Suspicious ECG: Normal Age: </= 45 years Risk Factors: 1 or 2 Risk Factors Troponin: </= Normal Limit Score: 1 MDM MDM MDM Narrative Medical decision making narrative: Patient willPatient evaluated for chest pain since last night. He appears nontoxic no acute distress. Chest pain is reproducible with palpation of the lower sternum. EKG shows an incomplete right bundle branch block but there is no change compared to prior EKG. His high since he troponin is negative. His CBC and CMP are normal. Lipase is normal. No signs of cardiomegaly on chest x- ray. Patient has no risk factors for PE and I do not think a D-dimer is indicated. I do not suspect pulmonary emboli. Patient is given Tylenol with no improvement of symptoms. Discussed that this pain can also be reflux related. Patient is requesting a COVID test. This is performed. Patient is well-appearing with constant chest pain for greater than 6 hours I think a single negative troponin effectively rules out ACS. Discharged home to follow-up with a primary care doctor. Counseled return precautions. Does not have any wheezing I do not think this is an asthma exacerbation. Does not require steroids at this time. Lab Data Attestation: I reviewed the patient's lab results. Labs: Laboratory Results - last 24 hr 12/26/21 12/26/21 12/26/21 12:30 12:30 12:30 WBC 5.8 RBC 5.58 Hgb 16.9 H Hct 46.7 MCV 83.7 MCH 30.3 MCHC 36.2 H RDW Std Deviation 36.1 RDW Coeff of Av 11.9 Plt Count 238 MPV 10.1 Immature Gran % (Auto) 0.700 Neut % (Auto) 63.6 Lymph % (Auto) 24.3 [place] % (Auto) 9.1 Eos % (Auto) 1.4 Baso % (Auto) 0.9 Absolute Neuts (auto) 3.7 Absolute Lymphs (auto) 1.41 Nucleated RBC % 0 Sodium 140 Potassium 3.6 Chloride 105 Carbon Dioxide 25.0 Anion Gap 10 BUN 13 Creatinine 1.12 Estim Creat Clear Calc 113.94 Est GFR (MDRD) Af Amer 103 Est GFR (MDRD) Non-Af 85 BUN/Creatinine Ratio 11.6 Glucose 108 H Calcium 9.6 Total Bilirubin 0.80 Direct Bilirubin 0.23 AST 26 ALT 58 Alkaline Phosphatase 83 Troponin I High Sens Total Protein 7.4 Albumin 4.2 Globulin 3.2 Lipase 109 12/26/21 12:30 WBC RBC Hgb Hct MCV MCH MCHC RDW Std Deviation RDW Coeff of Av Plt Count MPV Immature Gran % (Auto) Neut % (Auto) Lymph % (Auto) [place] % (Auto) Eos % (Auto) Baso % (Auto) Absolute Neuts (auto) Absolute Lymphs (auto) Nucleated RBC % Sodium Potassium Chloride Carbon Dioxide Anion Gap BUN Creatinine Estim Creat Clear Calc Est GFR (MDRD) Af Amer Est GFR (MDRD) Non-Af BUN/Creatinine Ratio Glucose Calcium Total Bilirubin Direct Bilirubin AST ALT Alkaline Phosphatase Troponin I High Sens < 3 L Total Protein Albumin Globulin Lipase Radiography Chest X-Ray - ED: 2 View, Read by ED Physician, Read by Radiologist and No Acute Disease Diagnostic Testing: Clinical Impression(s) from Imaging Studies Chest X-Ray 12/26/21 12:05 IMPRESSION: Normal x-ray examination of the chest. Electronically Signed: Wes Flores MD at 12:28 EDT , Rhythm Strip Rhythm Strip: Sinus Rhythm Rate: 82 EKG Initial EKG: Attestation: I personally reviewed and interpreted this EKG as follows: Interpretation: Sinus Rhythm Comments: Normal sinus rhythm at a rate of 82 Normal axis Normal intervals Incomplete right bundle branch block Normal ST segments Discharge Plan Triage Chief Complaint: Chest Pain ED Provider: Laquita Blunt Dx/Rx/DC Orders Clinical Impression: Chest pain, Encounter for laboratory testing for COVID-19 virus Instructions: ED Chest Pain, Noncardiac Prescriptions: No Action omeprazole 20 MG capsule 20 mg PO DAILY Primary Care Provider: Figueroa Bryson Referrals: Figueroa Bryson MD [Primary Care Provider] - Disposition Disposition: Home, Self Care
[2021-12-26 12:38] LABS: Absolute Lymphocyte Count 1.41 X10^3/uL (0.83-4.51); Absolute Neutrophil Count 3.7 X10^3/uL (2.0-7.7); Basophil# 0.05 X10^3/uL; Basophil% 0.9 % (0-1); Eosinophil# 0.08 X10^3/uL; Eosinophils% 1.4 % (0-5); Hematocrit 46.7 % (40-54); Hemoglobin 16.9 g/dL (13.0-16.5); Lymphocyte # 1.41 X10^3/ul (0.83-4.51); Lymphocyte % 24.3 % (19-41); Mean Corp Hgb Conc 36.2 g/dL (32-36); Mean Corpuscular Hgb 30.3 pg (27.0-32.0); Mean Corpuscular Volume 83.7 fL (80-94); Mean Platelet Vol. 10.1 fl (6.2-12.0); Monocyte# 0.53 X10^3/uL; Monocyte% 9.1 % (0-10); NRBC Flagged by Analyzer 0 % (0-5); Neutrophil # 3.69 X10^3/uL (2.7-7.7); Neutrophil % 63.6 % (47-70); Platelet Count 238 K/mm3 (150-450); RBC Distribution Width CV 11.9 % (11.6-14.6); RBC Distribution Width SD 36.1 fl (35.1-43.9); Red Blood Count 5.58 M/mm3 (4.6-6.2); White Blood Count 5.8 K/mm3 (4.4-11.0)
[2021-12-26 12:40] VITALS: BP 158/75; PULSE 87; RESP 18
[2021-12-26 12:52] LABS: AST(SGOT) 26 U/L (15-37); Alanine Aminotransfer ALT/SGPT 58 U/L (16-61); Albumin, Serum 4.2 g/dL (3.2-5.0); Alkaline Phosphatase 83 U/L (45-117); Bilirubin, Direct 0.23 mg/dL (0.00-0.30); Globulin 3.2 g/dL (2.2-4.2); Protein, Total 7.4 g/dL (6.4-8.2)
[2021-12-26 12:53] LABS: Anion Gap 10 (5-15); BUN 13 mg/dL (7-18); BUN/Creat Ratio 11.6 RATIO (10-20); Calcium,Total 9.6 mg/dL (8.5-10.1); Chloride 105 mmol/L (98-107); Creatinine, Serum 1.12 mg/dL (0.70-1.30); EST Glomerular Filtration Rate 85 mL/min (>60); Est Glom Filt Rate - Afr Amer 103 mL/min (>60); Estimated Creatinine Clearance 113.94 ml/min; Glucose 108 mg/dL (74-106); Lipase 109 U/L (73-393); Potassium 3.6 mmol/L (3.5-5.1); Sodium Level 140 mmol/L (136-145)
[2021-12-26] MEDS: Acetaminophen 325 MG Tablet 650 MG PO (13:07)
[2021-12-26 14:17] LABS: Troponin-I HS < 3 pg/mL (3.0-78.0)
[2021-12-26 14:41] VITALS: BP 145/87; PULSE 78; RESP 18
== END 2021-12-26 14:45 | disposition home or self-care (01) ==
PROVIDERS: Emergency Provider Emergency Medicine; PCP Family Medicine; Visit Provider Emergency Medicine
DX: R07.9 Chest pain, unspecified (principal); Z20.822 Contact with and (suspected) exposure to COVID-19; J45.909 Unspecified asthma, uncomplicated
CPT/HCPCS: 71046; 80048; 80076; 83690; 84484; 85025; 87426; 93005; 99285

== ENCOUNTER 2024-11-11 13:56 | Emergency (ER) | payer BC, SELFPAY ==
[2024-11-11 13:58] VITALS: BP 153/110; PULSE 87; RESP 18; TEMP 36.2; O2SAT 100; BMI 28.0
--- NOTE | 2024-11-11 14:23 | EKG12_ITS ---
Test Reason : Blood Pressure : */* mmHG Vent. Rate : 77 BPM Atrial Rate : 77 BPM P-R Int : 208 ms QRS Dur : 108 ms QT Int : 398 ms P-R-T Axes : 23 33 20 degrees QTcB Int : 450 ms Normal sinus rhythm Normal ECG Confirmed by DIMA JOE, HARI ([id number]), associate entertainment editor HORACIO LAROSE ([id number]) on 11/15/2024 9:40:27 AM Referred By: Confirmed By: HARI CH MD
[2024-11-11 14:44] LABS: Hematocrit 42.9 % (40-54); Hemoglobin 15.5 g/dL (13.0-16.5); Immature Granulocytes Count 0.030 X10^3/uL (0.0-0.0); Mean Corp Hgb Conc 36.1 g/dL (32-36); Mean Corpuscular Volume 83.1 fL (80-94); Mean Platelet Vol. 9.6 fl (6.2-12.0); NRBC Flagged by Analyzer 0 % (0-5); Platelet Count 241 K/mm3 (150-450); RBC Distribution Width CV 12.2 % (11.6-14.6); RBC Distribution Width SD 36.5 fl (35.1-43.9); Red Blood Count 5.16 M/mm3 (4.6-6.2); White Blood Count 5.0 K/mm3 (4.4-11.0)
[2024-11-11 15:08] LABS: Anion Gap 14 (5-15); BUN 8 mg/dL (4-19); BUN/Creat Ratio 7.9 RATIO (10-20); Calcium,Total 9.3 mg/dL (7.6-11.0); Carbon Dioxide 25.1 mmol/L (21.0-32.0); Chloride 100 mmol/L (98-108); Estimated Creatinine Clearance 126.88 ml/min (50-250); Glucose 102 mg/dL (70-99); Potassium 3.8 mmol/L (3.3-5.1)
--- NOTE | 2024-11-11 15:17 | EX.ED.DYSGE1 ---
HPI History of Present Illness Chief Complaint: Dizziness Informant: patient Narrative Narrative: Patient is 29-year-old male with history of celiac's presenting with episode of near syncope. Patient states he was at work (is working on building a pool house for lifestyle). He does note this morning earlier in the day he started to feel little lightheaded and a coworker told him to eat some candy. After about 10 minutes he felt better. His stomach was little upset so he did not eat lunch. 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 He crouched down and started to feel better. He initially went to urgent care but they instructed to come to the ER for further evaluation. He notes that this last weekend he thinks he had a stomach bug as he was having knots in his stomach and diarrhea. He has continued to have diarrhea. Has had a small amount of blood in his stool but also states he has a history of a hemorrhoid. States about 3 weeks ago he did eat a slice of pizza as he is on vacation. Denies any other sick contacts. Denies any fever or chills. [place] any chest pain or shortness of breath. Notes that he was having of some dizzy spells earlier in the year when he was on some pain medication but he stopped taking those medications. Has previously seen GI at [facility] but has not seen anyone in the last few years. No other complaints or concerns at this time. [facility] Medical History Celiac disease Bloody stools Asthma Knee pain Shoulder pain Hemorrhoid Home Medications Medication Instructions Recorded Last Taken Type omeprazole 20 mg capsule,delayed 20 mg PO DAILY 02/07/20 Unknown History release Allergy/AdvReac Type Severity Reaction Status Date / Time fluoxetine HCl (From Prozac) Allergy Hives Verified 11/11/24 13:57 gluten Allergy Abd Verified 11/11/24 13:57 cramps/diarrhea lisdexamfetamine dimesylate Allergy Other Verified 11/11/24 13:57 (From Vyvanse) sertraline HCl (From Zoloft) Allergy Hives Verified 11/11/24 13:57 Sulfa (Sulfonamide Allergy Rash Verified 11/11/24 13:57 Antibiotics) Social History Smoking Status: Never smoker ROS ROS ED Constitutional Constitutional ED: Denies chills, fever(s) or sweats Cardiovascular Cardiovascular: Denies chest pain Respiratory/Chest Respiratory/Chest: Denies cough Gastrointestinal Gastrointestinal: Reports abdominal pain, diarrhea, nausea and other Details: Reports some blood in his stool ; Denies vomiting Genitourinary Genitourinary ED: Denies dysuria or hematuria Musculoskeletal Musculoskeletal: Denies arthralgias or myalgias Integumentary Denies rash Neurologic Neurologic: Denies headache(s) or weakness Psychiatric Psychiatric: Denies anxiety EXAM Physical Exam Const Vital Signs: 11/11/24 13:58 11/11/24 14:23 11/11/24 16:06 Temperature 97.2 F L Temperature Source Temporal Pulse Rate 87 Pulse Rate [Lying] 83 Pulse Rate [Sitting (for 1 minute prior to obtaining)] 76 Pulse Rate [Standing (for 1 minute prior to obtaining)] 79 Respiratory Rate 18 Blood Pressure 153/110 H Blood Pressure [Lying] 159/91 H Blood Pressure [Sitting (for 1 minute prior to obtaining)] 158/98 H Blood Pressure [Standing (for 1 minute prior to obtaining)] 157/96 H Blood Pressure Mean 124 Blood Pressure Mean [Lying] 113 Blood Pressure Mean [Sitting (for 1 minute prior to obtaining)] 118 Blood Pressure Mean [Standing (for 1 minute prior to obtaining)] 116 Pulse Ox 100 Oxygen Delivery Method Room Air Room Air Positive well nourished and well developed General Appearance ED: well developed and NAD HEENT HEENT Narrative: Tacky mucosal membranes Eyes PERRL General Eye ED: Negative for scleral icterus Neck supple Chest Wall inspection of chest normal and palpation of chest normal Resp normal respiratory effort and clear to auscultation bilaterally Cardio regular rate, regular rhythm and no murmurs GI normal to inspection, nondistended, normoactive bowel sounds and non-tender Palpation: soft; Negative for tender or guarding Extremity normal to inspection Neuro oriented x3 Sensorium / Orientation: alert Motor Exam: Negative for general weakness Psych mental status grossly normal Skin no rashes or lesions noted and no wounds MDM MDM MDM Narrative Medical decision making narrative: Patient valuated for an episode of near syncope. He has recently had some increased diarrhea and decreased oral intake. Protocol EKG and labs obtained. Differential includes arrhythmia, vasovagal episode, hypoglycemia, ELMER, electrolyte derangement, dehydration, symptomatic anemia. Physical exam relatively benign and he is not hypotensive. I will be ordered IV fluids as reports lightheadedness, near syncope and recent diarrhea. EKG shows normal sinus rhythm with no acute arrhythmia or other concerning findings. CBC and BMP largely normal. Anticipate discharge home after IV fluids with outpatient follow-up with GI and primary care. Close tach vital signs negative. Patient be discharged home with outpatient referral/follow-up instructions. He is comfortable this plan of care. Offered Zofran but states he does not need Lab Data Attestation: I reviewed the patient's lab results. Labs: Laboratory Results - last 24 hr 11/11/24 11/11/24 14:34 15:25 WBC 5.0 RBC 5.16 Hgb 15.5 Hct 42.9 MCV 83.1 MCH 30.0 MCHC 36.1 H RDW Std Deviation 36.5 RDW Coeff of Av 12.2 Plt Count 241 MPV 9.6 Immature Gran % (Auto) 0.600 Neut % (Auto) 64.6 Lymph % (Auto) 22.8 [place] % (Auto) 10.2 H Eos % (Auto) 0.8 Baso % (Auto) 1.0 Absolute Neuts (auto) 3.2 Absolute Lymphs (auto) 1.14 Nucleated RBC % 0 Sodium 139 Potassium 3.8 Chloride 100 Carbon Dioxide 25.1 Anion Gap 14 BUN 8 Creatinine 1.06 Estim Creat Clear Calc 126.88 Est GFR (MDRD) Non-Af 98 BUN/Creatinine Ratio 7.9 L Glucose 102 H Calcium 9.3 POC Glucose 86 Rhythm Strip Rhythm Strip: Sinus Rhythm Rate: 77 Ectopy: None EKG Initial EKG: Attestation: I personally reviewed and interpreted this EKG as follows: Interpretation: Sinus Rhythm Comments: Normal sinus rhythm at a rate of 77 bpm Normal axis Normal intervals Normal ST segments Prior EKG tracings: available for review Prior: Unchanged Discharge Plan Triage Chief Complaint: Dizziness ED Provider: Laquita Blunt Dx/Rx/DC Orders Clinical Impression: Near syncope Instructions: ED Near-Fainting, Uncertain Cause Prescriptions: No Action omeprazole 20 MG capsule 20 mg PO DAILY Primary Care Provider: Figueroa Bryson Referrals: Friend,DO Rishabh [Med Staff - Active Staff] - Figueroa Bryson MD [Primary Care Provider] - Print Language: Nepalese Disposition Disposition: Home, Self Care
[2024-11-11] MEDS: 0.9% Normal Saline (1000mL) 1,000 ML 999 ML IV (15:23)
[2024-11-11 16:06] VITALS: BP 157/96; BP 158/98; BP 159/91; PULSE 76; PULSE 79; PULSE 83
[2024-11-11 16:33] VITALS: BP 147/98; PULSE 75; RESP 18; TEMP 37; O2SAT 100
== END 2024-11-11 16:41 | disposition home or self-care (01) ==
PROVIDERS: Emergency Provider Emergency Medicine; PCP Family Medicine; Visit Provider Emergency Medicine
DX: R55 Syncope and collapse (principal); R42 Dizziness and giddiness; R19.7 Diarrhea, unspecified; K90.0 Celiac disease; J45.909 Unspecified asthma, uncomplicated
CPT/HCPCS: 80048; 82962; 85025; 93005; 96360; 99284; A4216